=== PATIENT | female | born 1990 | race Caucasian/White ===

== ENCOUNTER 2022-11-26 18:33 | Emergency (ER) | payer OTHER ==
[~2022-11-26] VITALS: Ht 167.6 cm; Wt 68.2 kg
[~2022-11-26 18:33] MED LIST: LEVO-72 PO
[2022-11-26 22:00] VITALS: BP 116/80
== END 2022-11-26 22:15 | disposition home or self-care (01) ==
LOC: EMS 18:34
DX: O26.892 Other specified pregnancy related conditions, second trimester (principal); T14.90XA Injury, unspecified, initial encounter; Z3A.18 18 weeks gestation of pregnancy; Z88.0 Allergy status to penicillin; Z88.2 Allergy status to sulfonamides; Z88.8 Allergy status to other drugs, medicaments and biological substances; X79.XXXA Intentional self-harm by blunt object, initial encounter; Y93.89 Activity, other specified; Y92.89 Other specified places as the place of occurrence of the external cause; Y99.8 Other external cause status
CPT/HCPCS: 76805; 99281; 99284; Z7502